=== PATIENT | male | born 1980 | race Asian ===

== ENCOUNTER 2023-10-27 13:20 | Emergency (ER) | payer OTHER, SELFPAY ==
[2023-10-27 13:36] VITALS: BP 160/107; PULSE 84; RESP 14; TEMP 37.2; O2SAT 100
--- NOTE | 2023-10-27 13:44 | ED.EAR ---
HPI - Ear Problem General Chief complaint: Ear Stated complaint: EAR DRAINAGE Time Seen by Provider: 10/27/23 13:45 Source: patient, family, RN notes reviewed and old records reviewed Mode of arrival: ambulatory Limitations: no limitations History of Present Illness HPI Narrative: 43 year old male who presents to [facility] with complaints of left ear pain with some bloody drainage since this morning with some runny nose and and nasal stuffiness. Patient reports pain and decreaed hearing from left ear with some clear to blood tinged drainage from left ear. 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 Patient reports that he has been taking some DayQuil for his symptoms. MD Complaint: ear pain, ear discharge and decreased hearing Location: left ear Duration: constant Severity: moderate Discharge from ear: Reports yes - bloody (clear) Treatment prior to arrival: other (DayQuil) Related Data Allergies Allergy/AdvReac Type Severity Reaction Status Date / Time No Known Allergies Allergy Verified 10/27/23 13:30 Review of Systems Review of Systems: CONSTITUTIONAL: Denies malaise, chills, sweats, or fever. EYES: Denies visual changes, redness, or discharge. ENT: Reports rhinorrhea, congestion, sinus pain, left otalgia and no sore throat. CARDIOVASCULAR: Denies chest pain, palpitations, or edema. RESPIRATORY: Reports no cough.? Denies dyspnea. GASTROINTESTINAL: Denies abdominal pain, nausea, vomiting, diarrhea SKIN: Denies rash or itching. MUSCULOSKELETAL: Denies myalgia. NEUROLOGIC: Denies headache. All systems reviewed & are unremarkable except as noted in HPI and below PMFSH Social History Social History (Updated 10/27/23 @ 16:54 by Elisabeth Mcclendon NP) Smoking status: Never smoker Alcohol intake: current Alcohol use details: social Substance use type: does not use Gender identity (if verbalized by the patient): Male Comments At time of signature, agree with nursing past medical, surgical, social and family history. There is no relevant family history pertinent to the presenting complaint Exam Narrative: GENERAL: Well-appearing, well-nourished, and in no acute distress. HEAD: Normocephalic EYES: PERRLA, conjunctivae clear ENT: Nares clear, turbinates edematous and erythematous, clear discharge. Mucous membranes moist Left TM red with white liquid drainage from left ear with some blood tinged drainage unable to view TM. Right TM pearly [place] with dull light reflex; no tragal tenderness. Oropharynx erythematous without lesions. Tonsils not enlarged and without exudate, no drooling, no hoarseness, no trismus, uvula midline. NECK: Supple. No lymphadenopathy CHEST: Clear to auscultation, breath sounds equal. No wheezing, rhonchi, rales, or stridor. No respiratory distress, speaks in full sentences.SAO2 100% on room air HEART: Regular rate and rhythm. No murmur heard. SKIN: Warm, dry, no rash. NEURO: Alert and oriented x3. PSYCH: Normal mood and affect Course Course Emergency Course: Patient is aware of diagnosis, understands and agrees to treatment plan.? Anticipatory guidance given.? Patient agrees to follow-up as directed and is aware of reasons to seek care at the emergency department. Portions of this record may have been created with voice recognition software Level of Care: Express Care Visit Vital Signs Vital signs: Vital Signs Temperature 37.2 C 10/27/23 13:36 Pulse Rate 84 10/27/23 13:36 Respiratory Rate 14 10/27/23 13:36 Blood Pressure 160/107 H 10/27/23 13:36 Pulse Oximetry 100 10/27/23 13:36 Oxygen Delivery Room Air 10/27/23 13:36 Temperature 37.2 C 10/27/23 13:36 Pulse Rate 84 10/27/23 13:36 Respiratory Rate 14 10/27/23 13:36 Blood Pressure 160/107 H 10/27/23 13:36 Pulse Oximetry 100 10/27/23 13:36 Oxygen Delivery Room Air 10/27/23 13
== END 2023-10-27 14:05 | disposition home or self-care (01) ==
PROVIDERS: Emergency Provider Registered Nurse
DX: H66.002 Acute suppurative otitis media without spontaneous rupture of ear drum, left ear (principal)
CPT/HCPCS: 99213; G0463